=== PATIENT | male | born 1965 | race Caucasian/White ===

== ENCOUNTER 2020-06-02 07:19 | Emergency (ER) | payer OTHER ==
[~2020-06-02] VITALS: Ht 193 cm; Wt 115.2 kg
[~2020-06-02 07:19] MED LIST: ASPI81TA26 PO; FENO160T10 PO; JANU100T14 PO; KEFL500C17 PO; LISI10TA4 PO; LISI40TA PO; METF-415 PO; METO25TA4 PO; METO50TA7 PO; OMEP-358 PO; PIOG1TAB36 PO; ROSU40TA4 PO
[2020-06-02] MEDS ORDERED: TRUL10IN SC (07:30)
[2020-06-02 08:02] LABS: BASO # 0.1 10^3/uL (0.0-0.2); BASO % 0.7 % (0.0-1.0); EOS # 0.2 10^3/uL (0.0-0.5); EOS % 2.3 % (0.0-3.0); HEMATOCRIT 38.9 % (42.0-52.0); LYMPH # 1.2 10^3/uL (1.5-5.0); LYMPH % 16.8 % (24.0-44.0); MEAN CORPUSCULAR HGB CONC 33.4 g/dl (32.0-36.5); MEAN CORPUSCULAR VOLUME 89.8 fl (80.0-96.0); MONO # 0.6 10^3/uL (0.0-0.8); MONO % 8.9 % (0.0-5.0); NEUTROPHILS # 4.9 10^3/uL (1.5-8.5); PLATELET COUNT, AUTOMATED 321 10^3/uL (150-450); RED BLOOD COUNT 4.33 10^6/uL (4.30-6.10)
[2020-06-02 08:20] LABS: ALBUMIN 3.7 GM/DL (3.2-5.2); ALT/SGPT 23 U/L (12-78); BILIRUBIN,DIRECT < 0.1 MG/DL (0.0-0.2); BILIRUBIN,TOTAL 0.3 MG/DL (0.2-1.0); LIPASE 202 U/L (73-393); TOTAL PROTEIN 7.7 GM/DL (6.4-8.2)
--- NOTE | 2020-06-02 08:42 | REPVR ---
PROCEDURE INFORMATION: Exam: US Abdomen, Limited; Right Upper Quadrant Exam date and time: 06/02/2020 8:32 AM Age: 54 years old Clinical indication: Abdominal pain; Additional info: Ruq pain TECHNIQUE: Imaging protocol: US abdomen. Real time ultrasound with image documentation. Limited exam focused on the right upper quadrant. COMPARISON: No relevant prior studies available. FINDINGS: Limitations: Bowel gas. Liver: The liver is homogeneous in echotexture. No demonstrated mass or intrahepatic biliary ductal dilatation. Gallbladder: The gallbladder is without demonstrated stones, sludge or wall thickening, and there is no pericholecystic fluid. Sonographic Sanchez sign was not commented on. Common bile duct: The common bile duct is normal in size for a patient of this age at 2.6 mm. Pancreas: The pancreas is obscured by overlying bowel gas. Right kidney: The right kidney measures 12.4 x 5.2 x 5.5 cm. It contains a 5 mm cyst medially. No hydronephrosis or demonstrated stone or mass. Portal venous: Portal venous flow is normal in direction. IMPRESSION: 1. No cholelithiasis or biliary ductal dilatation. 2. Pancreas obscured by bowel gas. 3. Small right renal cyst. Electronically signed by: Sagar Gonzalez On 06/02/2020 08:42:12 AM
[2020-06-02 08:57] LABS: CPK CREATINE PHOSPHOKINASE 76 U/L (39-308); MB/CK RELATIVE INDEX 2.63 (< OR =4); TROPONIN I < 0.02 NG/ML (< 0.10)
[2020-06-02] MEDS ORDERED: ISOVUE-370 76% 100ML VIAL As Ordered ONE (11:51)
--- NOTE | 2020-06-02 12:27 | REPVR ---
PROCEDURE INFORMATION: Exam: CT Angiography Chest With Contrast Exam date and time: 06/02/2020 11:41 AM Age: 54 years old Clinical indication: Chest pain; Additional info: Ruq pain, pleuritic pain, R/O pe vs abd pathology TECHNIQUE: Imaging protocol: Computed tomographic angiography of the chest with intravenous contrast. 3D rendering (Not supervised by radiologist): MIP and/or 3D reconstructed images were created by the technologist. Radiation optimization: All CT scans at this facility use at least one of these dose optimization techniques: automated exposure control; mA and/or kV adjustment per patient size (includes targeted exams where dose is matched to clinical indication); or iterative reconstruction. Contrast material: ISOVUE 370; Contrast volume: 100 ml; Contrast route: INTRAVENOUS (IV); COMPARISON: CR Chest, 2 view PA, Lat 06/02/2020 8:25 AM FINDINGS: Pulmonary arteries: No pulmonary embolus is identified. Aorta: The thoracic aorta is nonaneurysmal. Thyroid: The thyroid contains a 5 mm calcification on the right. Lungs: Mild dependent atelectasis is present bilaterally. There is also mild scattered scarring. There is no focal consolidation. The central airways appear patent. Pleural space: Unremarkable. No pneumothorax. No pleural effusion. Heart: Coronary artery calcifications are noted. No significant pericardial effusion. Lymph nodes: Unremarkable. No enlarged lymph nodes. Bones/joints: Degenerative changes involve the spine. Soft tissues: Unremarkable. IMPRESSION: No pulmonary embolus or other acute thoracic disease identified. COMMENTS: Dedicated abdominal CT has been performed, and findings below the diaphragm will be reported separately. Electronically signed by: Sagar Gonzalez On 06/02/2020 12:26:50 PM
--- NOTE | 2020-06-02 12:31 | REPVR ---
PROCEDURE INFORMATION: Exam: CT Abdomen And Pelvis With Contrast Exam date and time: 06/02/2020 11:48 AM Age: 54 years old Clinical indication: Abdominal pain; Additional info: Ruq pain TECHNIQUE: Imaging protocol: Computed tomography of the abdomen and pelvis with intravenous contrast. Radiation optimization: All CT scans at this facility use at least one of these dose optimization techniques: automated exposure control; mA and/or kV adjustment per patient size (includes targeted exams where dose is matched to clinical indication); or iterative reconstruction. Contrast material: ISOVUE 370; Contrast volume: 100 ml; Contrast route: INTRAVENOUS (IV); COMPARISON: GALLBLADDER US 06/02/2020 8:11 AM FINDINGS: Liver: Normal. No mass. Gallbladder and bile ducts: No gallstones are evident, but ultrasound would be more sensitive. No gross biliary ductal dilatation. Pancreas: Normal. No ductal dilation. Spleen: Normal. No splenomegaly. Adrenals: Normal. No mass. Kidneys and ureters: The kidneys demonstrate some cortical atrophy. The right contains 2 small cysts, measuring 7 mm, not requiring follow-up. Stomach and bowel: The unopacified small bowel is not significantly distended to suggest obstruction. The large bowel is grossly unremarkable in appearance. Appendix: The appendix appears normal where at least partially visualized, and there is no inflammatory change in the region. Intraperitoneal space: No free air or significant free fluid. Vasculature: The abdominal aorta is nonaneurysmal. Atherosclerotic vascular calcifications are noted. Lymph nodes: Unremarkable. No enlarged lymph nodes. Bladder: Grossly unremarkable. Reproductive: Unremarkable as visualized. Bones/joints: Degenerative changes involve the spine and hips. Soft tissues: There are small fat containing umbilical and bilateral inguinal hernias. IMPRESSION: Small fat containing umbilical and bilateral inguinal hernias. Additional nonurgent findings as described. COMMENTS: See separate chest CT report for findings above the diaphragm. Electronically signed by: Sagar Gonzalez On 06/02/2020 12:31:09 PM
[2020-06-02] MEDS ORDERED: GI COCKTAIL 50ML BTL(HYOSCYAMINE/MAALOX/LIDOCAINE VISCOUS)(1:3:1) PO ONE (13:15)
[2020-06-02 13:50] VITALS: BP 135/89
--- NOTE | 2020-06-17 13:45 | ECGEPIP ---
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
--- NOTE | 2020-07-01 10:54 | REP ---
CHEST X-RAY: HISTORY: Lower chest and abdominal pain. TECHNIQUE: PA and lateral FINDINGS: Mediastinum and cardiac silhouette are normal. Lung serna are clear. No focal consolidation, effusion or pneumothorax. No free air below the diaphragm. Skeletal structures are intact. IMPRESSION: Normal chest x-ray. MTDD
== END 2020-06-02 13:53 | disposition home or self-care (01) ==
LOC: M ED 07:19
DX: N20.0 Calculus of kidney (principal); K42.9 Umbilical hernia without obstruction or gangrene; E78.5 Hyperlipidemia, unspecified; E11.9 Type 2 diabetes mellitus without complications; I11.9 Hypertensive heart disease without heart failure; K21.9 Gastro-esophageal reflux disease without esophagitis
CPT/HCPCS: 36415; 71046; 71275; 74177; 76705; 80047; 80076; 82550; 82553; 83690; 84484; 85025; 93005; 99284; Q9967

== ENCOUNTER → 2020-08-08 | Outpatient (CLI) | payer OTHER ==
[~2020-08-08] MED LIST changes: +TRUL10IN SC
== END ==
LOC: M LABSMTC 12:04
PROVIDERS: ATTEND Anesthesiology
DX: Z01.818 Encounter for other preprocedural examination (principal); Z20.828 Contact with and (suspected) exposure to other viral communicable diseases
CPT/HCPCS: C9803; U0003

== ENCOUNTER 2020-08-13 08:08 | Day surgery (SDC) | payer OTHER ==
[~2020-08-13] VITALS: Ht 193 cm; Wt 113.9 kg
[~2020-08-13 08:08] MED LIST changes: +NS 1,000 ML IV ONE
[2020-08-13] MEDS ORDERED: propofoL 200 MG/20 ML VIAL As Ordered ONE ×3 (09:00→09:30)
[2020-08-13] MEDS ORDERED: LIDOCAINE 2% 100MG/5ML SDV (FOR ANES.) As Ordered ONE (09:00)
--- NOTE | 2020-08-13 09:48 | ROOR ---
Patient Name: Terell Pickens Procedure Date: 08/13/2020 9:14 AM Date of : 1965 Age: 54 Room: [facility] Gender: Male Note Status: Finalized Procedure: Colonoscopy Indications: Hematochezia Providers: DO Mona Jiang MD: DANITA PALMER Requesting Provider: Medicines: Propofol per Anesthesia Complications: No immediate complications. Procedure: Pre-Anesthesia Assessment: - Prior to the procedure, a History and Physical was performed, and patient medications and allergies were reviewed. The patient is competent. The risks and benefits of the procedure and the sedation options and risks were discussed with the patient. All questions were answered and informed consent was obtained. Patient identification and proposed procedure were verified by the physician, the nurse, the anesthesiologist and the power plant technician in the endoscopy suite. Mental Status Examination: alert and oriented. Airway Examination: normal oropharyngeal airway and neck mobility. Respiratory Examination: clear to auscultation. CV Examination: normal. Prophylactic Antibiotics: The patient does not require prophylactic antibiotics. Prior Anticoagulants: The patient has taken no previous anticoagulant or antiplatelet agents. ASA Grade Assessment: II - A patient with mild systemic disease. After reviewing the risks and benefits, the patient was deemed in satisfactory condition to undergo the procedure. The anesthesia plan was to use monitored anesthesia care (MAC). Immediately prior to administration of medications, the patient was re-assessed for adequacy to receive sedatives. The heart rate, respiratory rate, oxygen saturations, blood pressure, adequacy of pulmonary ventilation, and response to care were monitored throughout the procedure. The physical status of the patient was re-assessed after the procedure. The Colonoscope was introduced through the anus and advanced to the cecum, identified by appendiceal orifice and ileocecal valve. The colonoscopy was performed without difficulty. The patient tolerated the procedure well. Findings: Five hyperplastic polyps were found in the descending colon and transverse colon. The polyps were less than 5 mm in size. These polyps were removed with a hot snare. Resection was complete, but the polyp tissue was only partially retrieved. Estimated blood loss was minimal. Non-bleeding internal hemorrhoids were found during retroflexion. The hemorrhoids were Grade I (internal hemorrhoids that do not prolapse). Impression: - Five less than 5 mm polyps in the descending colon and in the transverse colon, removed with a hot snare. Complete resection. Partial retrieval. - Non-bleeding internal hemorrhoids. Recommendation: - Await pathology results. - Patient has a contact number available for emergencies. The signs and symptoms of potential delayed complications were discussed with the patient. Return to normal activities tomorrow. Written discharge instructions were provided to the patient. - Repeat colonoscopy in 3 - 5 years for surveillance based on pathology results. - Return to my office at appointment to be scheduled. Cosmo Moore DO 08/13/2020 9:47:45 AM Electronically signed by Cosmo Moore DO Number of Addenda: 0 Note Initiated On: 08/13/2020 9:14 AM Estimated Blood Loss: Estimated blood loss was minimal.
[2020-08-13 10:15] VITALS: BP 145/91
== END 2020-08-13 10:24 | disposition home or self-care (01) ==
LOC: M OPP 08:08
PROVIDERS: ATTEND Surgery
DX: D12.3 Benign neoplasm of transverse colon (principal); D12.4 Benign neoplasm of descending colon; K64.0 First degree hemorrhoids; K92.1 Melena; I25.2 Old myocardial infarction; E11.9 Type 2 diabetes mellitus without complications; Z79.84 Long term (current) use of oral hypoglycemic drugs; Z79.899 Other long term (current) drug therapy; Z88.8 Allergy status to other drugs, medicaments and biological substances; Z95.5 Presence of coronary angioplasty implant and graft

== ENCOUNTER → 2021-01-23 | Outpatient (CLI) | payer OTHER ==
[~2021-01-23] MED LIST changes: +LISI10TA22 PO; -LISI10TA4 PO; -LISI40TA PO; +LISI40TA4 PO; -NS 1,000 ML IV ONE
--- NOTE | 2021-01-23 13:16 | REP ---
INDICATION: CHRONIC LOW BACK PAIN COMPARISON: None. TECHNIQUE: AP, lateral, bilateral oblique, and coned-down views of the lumbar spine. FINDINGS: Alignment and lordosis maintained. Vertebral bodies are intact. No acute fracture/compression injury or subluxation. Endplate sclerosis with disc space narrowing noted at L5-S1. IMPRESSION: Focal degenerative changes at L5-S1. <Electronically signed by Cristian Pineda > 01/23/21 [id number]
== END ==
LOC: M WUC 12:49
PROVIDERS: ATTEND Physician Assistant
DX: M51.36 Other intervertebral disc degeneration, lumbar region (principal)

== ENCOUNTER → 2021-04-16 | Outpatient (CLI) | payer OTHER ==
--- NOTE | 2021-04-16 14:20 | REPVR ---
PROCEDURE INFORMATION: Exam: MR Lumbar Spine Without Contrast Exam date and time: 04/16/2021 9:33 AM Age: 55 years old Clinical indication: Low back pain; Patient HX: Chronic lbp for >1 year, numbness in lt thigh only as well as sciatica on lt side only, nki, PT states since lbp started his back easily "gives out" and makes him unable to walk for periods of time; Additional info: Dd lumbar region TECHNIQUE: Imaging protocol: Multiplanar magnetic resonance images of the lumbar spine without intravenous contrast. COMPARISON: CR SPINE LS COMPLETE 01/23/2021 1:02 PM FINDINGS: Vertebrae: Normal alignment. No compression fracture. Degenerative facet arthropathy. Spinal cord: The conus medullaris is normal appearance at the L1 level. L1-L2: No significant disc disease. No significant spinal canal stenosis. No neural foraminal stenosis. L2-L3: No significant disc disease. No significant spinal canal stenosis. No neural foraminal stenosis. L3-L4: No significant disc disease. No significant spinal canal stenosis. No neural foraminal stenosis. L4-L5: Mildly bulging annulus with possible central subligamentous disc herniation indenting the ventral thecal sac without narrowing of the lateral recesses or compression of the exiting L5 nerve roots with patient in the supine position. There is residual fat within both lateral recesses. No significant spinal canal stenosis. No neural foraminal stenosis. L5-S1: Disc space narrowing. No significant spinal canal stenosis. No neural foraminal stenosis. Soft tissues: Unremarkable. IMPRESSION: No evidence of neural compromise. There may be a small central subligamentous disc herniation at the L4-L5 level which does not appear to affect the exiting L5 nerve roots. Electronically signed by: Eli Lira On 04/16/2021 14:19:33 PM
== END ==
LOC: M RAD 08:53
PROVIDERS: ATTEND Physician Assistant
DX: M51.36 Other intervertebral disc degeneration, lumbar region (principal)

== ENCOUNTER → 2021-05-18 | Outpatient (CLI) | payer OTHER ==
[2021-05-18 16:14] LABS: PLATELET COUNT, AUTOMATED 271 10^3/uL (150-450)
[2021-05-18 16:37] LABS: COLLAGEN EPINEPHRINE 162 SECONDS (74-162)
[2021-05-18 16:39] LABS: INR 0.95; PARTIAL THROMBOPLASTIN TIME 28.8 SECONDS (25.9-37.0); PROTHROMBIN TIME 13.1 SECONDS (12.7-14.5)
== END ==
LOC: M LAB 15:36
PROVIDERS: ATTEND Physician Assistant
DX: M51.36 Other intervertebral disc degeneration, lumbar region (principal)

== ENCOUNTER → 2021-07-25 | Outpatient (CLI) | payer OTHER | LOC: M LABSMTC 10:38 | PROVIDERS: ATTEND Pediatrics | DX: Z20.822 Contact with and (suspected) exposure to COVID-19 (principal) | CPT/HCPCS: C9803; U0003 ==

== ENCOUNTER 2025-01-23 14:08 | Emergency (ER) | payer OTHER ==
[~2025-01-23] VITALS: Ht 193 cm; Wt 122.6 kg
[~2025-01-23 14:08] MED LIST changes: -ROSU40TA4 PO; +ROSU40TA81 PO
[2025-01-23 14:12] VITALS: TEMP 98.6
[2025-01-23] MEDS: METOPROLOL 5 MG/5 ML VIAL IV SCH (14:47)
[2025-01-23] MEDS: METOPROLOL TART 25 MG TABLET PO ONE (14:50)
[2025-01-23 14:59] VITALS: BP 141/76
[2025-01-23 15:02] LABS: BASO % 0.5 % (0.0-1.0); EOS # 0.1 10^3/uL (0.0-0.5); EOS % 1.3 % (0.0-3.0); HEMATOCRIT 40.4 % (42.0-52.0); HEMOGLOBIN 13.6 g/dl (13.5-17.5); LYMPH # 1.6 10^3/uL (1.5-5.0); LYMPH % 19.7 % (24.0-44.0); MEAN CORPUSCULAR HEMOGLOBIN 30.2 pg (27.0-33.0); MEAN CORPUSCULAR HGB CONC 33.7 g/dl (32.0-36.5); MEAN CORPUSCULAR VOLUME 89.6 fl (80.0-96.0); MONO # 0.8 10^3/uL (0.0-0.8); MONO % 10.6 % (2.0-8.0); NEUTROPHILS # 5.3 10^3/uL (1.5-8.5); NEUTROPHILS % 67.6 % (36.0-66.0); PLATELET COUNT, AUTOMATED 318 10^3/uL (150-450); RED BLOOD COUNT 4.51 10^6/uL (4.30-6.10); WHITE BLOOD COUNT 7.9 10^3/uL (4.0-10.0)
[2025-01-23 15:23] LABS: INR 0.95
[2025-01-23 15:34] LABS: CPK CREATINE PHOSPHOKINASE 60 U/L (46-171)
[2025-01-23 15:35] LABS: BLOOD UREA NITROGEN 23 MG/DL (9-23); CALCIUM LEVEL 7.9 MG/DL (8.5-10.1); CARBON DIOXIDE LEVEL 23 MMOL/L (20-31); CHLORIDE LEVEL 107 MMOL/L (98-107); CK-MB VALUE MASS < 1.0 NG/ML (<3.6); CREATININE FOR GFR 0.98 MG/DL (0.70-1.30); GLOMERULAR FILTRATION RATE 88.8 (>56); GLUCOSE, FASTING 235 MG/DL (60-100); MB/CK RELATIVE INDEX 1.66 (< OR =4); POTASSIUM SERUM 4.3 MMOL/L (3.5-5.1); SODIUM LEVEL 140 MMOL/L (136-145)
[2025-01-23 15:37] LABS: THYROID STIMULATING HORMONE 1.071 uIU/ML (0.55-4.78)
[2025-01-23] MEDS ORDERED: ELIQ5TAB PO ×2 (16:20→16:21)
[2025-01-23] MEDS ORDERED: METO50TA7 PO (16:22)
[2025-01-23 16:38] LABS: CK-MB VALUE MASS < 1.0 NG/ML (<3.6)
[2025-01-23 16:39] LABS: CPK CREATINE PHOSPHOKINASE 53 U/L (46-171); MB/CK RELATIVE INDEX 1.88 (< OR =4)
[2025-01-23 18:00] VITALS: BP 119/78; O2SAT 97
== END 2025-01-23 19:12 | disposition home or self-care (01) ==
LOC: M ED 14:08
DX: I48.91 Unspecified atrial fibrillation (principal); I45.10 Unspecified right bundle-branch block; I25.2 Old myocardial infarction; E11.9 Type 2 diabetes mellitus without complications; I10 Essential (primary) hypertension; E78.5 Hyperlipidemia, unspecified; Z79.1 Long term (current) use of non-steroidal anti-inflammatories (NSAID); Z79.01 Long term (current) use of anticoagulants; Z79.4 Long term (current) use of insulin; Z79.84 Long term (current) use of oral hypoglycemic drugs; Z79.899 Other long term (current) drug therapy

== ENCOUNTER 2025-04-03 06:09 | Day surgery (SDC) | payer OTHER ==
[~2025-04-03] VITALS: Ht 193 cm; Wt 123.8 kg
[~2025-04-03 06:09] MED LIST changes: +AMIO200T54 PO; +AMLO2.5C6 PO; +ELIQ5TAB PO; +EZET10TA21 PO; +JANU100T PO; +LANTINJ4 SC; +LISI40TA10 PO; -LISI40TA4 PO
[2025-04-03] MEDS ORDERED: LR 1,000 ML IV SCH (06:15)
[2025-04-03] MEDS ORDERED: LIDOCAINE 2% 100 MG/5 ML SDV (FOR ANES.) As Ordered ONE (06:56)
[2025-04-03 08:08] VITALS: BP 141/83; TEMP 96.6; O2SAT 97
== END 2025-04-03 08:31 | disposition home or self-care (01) ==
LOC: M SDC 06:09
PROVIDERS: ATTEND Internal Medicine Cardiovascular Disease
DX: I48.19 Other persistent atrial fibrillation (principal); I25.10 Atherosclerotic heart disease of native coronary artery without angina pectoris; I10 Essential (primary) hypertension; I25.2 Old myocardial infarction; Z95.5 Presence of coronary angioplasty implant and graft; E11.9 Type 2 diabetes mellitus without complications; E78.00 Pure hypercholesterolemia, unspecified; K21.9 Gastro-esophageal reflux disease without esophagitis; Z79.899 Other long term (current) drug therapy; Z79.01 Long term (current) use of anticoagulants; Z79.84 Long term (current) use of oral hypoglycemic drugs; Z79.4 Long term (current) use of insulin